=== PATIENT | female | born 1980 | race Caucasian/White ===

== ENCOUNTER 2018-04-14 21:43 | Emergency (ER) | payer BC ==
--- NOTE | 2018-04-14 21:45 | PDOC ---
History of Present Illness - General History Source: Patient Exam Limitations: No Limitations - History of Present Illness Initial Comments: 04/14/18 22:16 The patient is a 37 year old female, with no significant past medical history, who presents to the ED complaining of a frontal head injury after a fall earlier today. She notes that she was out drinking during happy hour with coworkers when she fell forward and hit her head. She reports that she was unable to break her fall due to her inebriated state. She does report some mild dizziness. She denies any seizure like activity. She does reports that she was able to drive herself to the ED. She denies any loss of consciousness, loose teeth or any other kind of injuries. The patient denies chest pain, shortness of breath, headache, nausea and vomit. Allergies: Sulfa Past surgical history: None reported Social History: No alcohol, tobacco or drug use reported <Oscar Oliveros - Last Filed: 04/14/18 22:36> <Niranjan Ballard - Last Filed: 04/15/18 03:07> - General Chief Complaint: Injury Stated Complaint: FELL Time Seen by Provider: 04/14/18 21:45 Past History <Oscar Oliveros - Last Filed: 04/14/18 22:36> <Niranjan Ballard - Last Filed: 04/15/18 03:07> - Past Medical History Allergies/Adverse Reactions: Allergies Allergy/AdvReac Type Severity Reaction Status Date / Time Sulfa (Sulfonamide Allergy Intermediate Verified 04/14/18 21:44 Antibiotics) Home Medications: Ambulatory Orders NK [No Known Home Medication] 04/14/18 Review of Systems - Review of Systems Able to Perform ROS?: Yes Comments:: 04/14/18 22:16 GENERAL/CONSTITUTIONAL: No fever or chills. No weakness. HEAD, EYES, EARS, NOSE AND THROAT: (+) Frontal head injury, above left eyebrow. No change in vision. No ear pain or discharge. No sore throat. GASTROINTESTINAL: No nausea, vomiting, diarrhea or constipation. GENITOURINARY: No dysuria, frequency, or change in urination. CARDIOVASCULAR: No chest pain or shortness of breath. RESPIRATORY: No cough, wheezing, or hemoptysis. MUSCULOSKELETAL: No joint or muscle swelling or pain. No neck or back pain. SKIN: No rash NEUROLOGIC: (+) Dizziness. No headache, loss of consciousness, or change in strength/sensation. ENDOCRINE: No increased thirst. No abnormal weight change. HEMATOLOGIC/LYMPHATIC: No anemia, easy bleeding, or history of blood clots. ALLERGIC/IMMUNOLOGIC: No hives or skin allergy. <Oscar Oliveros - Last Filed: 04/14/18 22:36> *Physical Exam - Vital Signs Last Vital Signs Temp Pulse Resp BP Pulse Ox 97.4 F L 85 16 117/79 100 04/14/18 21:44 04/14/18 21:44 04/14/18 21:44 04/14/18 21:44 04/14/18 21:44 - Physical Exam Comments: 04/14/18 22:28 Constitutional: Awake, alert, oriented. No acute distress. Head: (+) 2 cm horiztonal laceration over her left eyebrow. Eyes: PERRL. EOMI. Conjunctivae are not pale. ENT: Mucous membranes are moist and intact. Posterior pharynx without exudates or erythema. Uvula midline. Neck: Supple. Full ROM. No lymphadenopathy. Cardiovascular: Regular rate. Regular rhythm. S1, S2 regular. Distal pulses are 2+ and symmetric. Pulmonary/Chest: No evidence of respiratory distress. Clear to auscultation bilaterally No wheezing, rales or rhonchi. Abdominal: Soft and non-distended. There is no tenderness. No rebound, guarding or rigidity. No organomegaly. No palpable masses. Good bowel sounds. Back: No CVA tenderness. Musculoskeletal: No edema. No cyanosis. No clubbing. Full range of motion in all extremities. Nocalf tenderness. Radial/pedal pulses are intact and 2+ bilaterally Skin: Skin is warm and dry. No petechiae. No purpura. Neurological: Alert and oriented to person, place, and time. Cranial nerves II -XII are grossly intact. Normal speech. Strength is grossly symmetric. No sensory deficits. Psychiatric: Good eye contact. Normal interaction, affect and behavior. <Oscar Oliveros - Last Filed: 04/14/18 22:36> Moderate Sedation - Procedure Monitoring Vital Signs: Procedure Monitoring Vital Signs Temperature 97.4 F L 04/14/18 21:44 Pulse Rate 85 04/14/18 21:44 Respiratory Rate 16 04/14/18 21:44 Blood Pressure 117/79 04/14/18 21:44 O2 Sat by Pulse Oximetry (%) 100 04/14/18 21:44 <Oscar Oliveros - Last Filed: 04/14/18 22:36> Procedures - Laceration/Wound Repair Left Anterior Medial Head Wound Length: to 2.5 cm Wound Explored: clean, no foreign body present Wound's Depth, Shape: linear Irrigated w/ Saline: Yes Anesthesia: 1% Lidocaine (3 ccs without Epi ) Amount of Anesthetic (ccs): 3 Wound Repaired With: Sutures Suture Size/Type: 6:0, nylon Number of Sutures: 3 <Oscar Oliveros - Last Filed: 04/14/18 22:36> Medical Decision Making - Medical Decision Making 04/15/18 03:05 ic[place] head - t utd lac repaired. ? nasal fx--plastics fu for persistent pain, deformity <Niranjan Ballard - Last Filed: 04/15/18 03:07> *DC/Admit/Observation/Transfer - Attestations Scribe Attestion: 04/14/18 22:16 Documentation prepared by Oscar Oliveros, acting as medical coordinator pesticide use for Niranjan Ballard MD <Oscar Oliveros - Last Filed: 04/14/18 22:36> <Niranjan Ballard - Last Filed: 04/15/18 03:07> Diagnosis at time of Disposition: Laceration - Discharge Dispostion Disposition: HOME Condition at time of disposition: Good - Referrals Referrals: Desire Joe MD [Primary Care Provider] - Call tomorrow - Patient Instructions Printed Discharge Instructions: DI for Concussion, DI for Laceration Repair -- Simple - Post Discharge Activity
[2018-04-14 21:57] VITALS: BP 117/79; PULSE 85; TEMP 97.4; BMI 26.5
== END 2018-04-14 22:35 | disposition home or self-care (01) ==
LOC: FER 21:43
PROC: 0HQ0XZZ Repair Scalp Skin, External Approach (ICD-10-PCS; principal; 2018-04-14)
DX: S01.01XA Laceration without foreign body of scalp, initial encounter (principal); W18.39XA Other fall on same level, initial encounter; Y93.89 Activity, other specified; Y92.89 Other specified places as the place of occurrence of the external cause
CPT/HCPCS: 99281-25

== ENCOUNTER 2020-05-03 12:40 | Emergency (ER) | payer BC ==
[2020-05-03 13:31] VITALS: BP 126/80; PULSE 82; TEMP 98.6; BMI 28.3
[2020-05-03 14:14] LABS: BASO % 1.5 % (0-2.0); EOS % 0.1 % (0-4.5); HEMATOCRIT 38.2 % (32.4-45.2); HEMOGLOBIN 12.2 GM/dl (10.7-15.3); LYMPH % 15.1 % (8-40); MCH 26.3 pg (25.7-33.7); MCHC 31.9 g/dl (32.0-36.0); MEAN CELL VOLUME 82.5 fl (80-96); MEAN PLT VOLUME 8.6 fl (7.5-11.1); MONO % 2.5 % (3.8-10.2); NEUT % 80.8 % (42.8-82.8); PLATELET COUNT 275 K/MM3 (134-434); RBC 4.63 M/mm3 (3.60-5.2); RDW 12.4 % (11.6-15.6); WHITE BLOOD COUNT 7.7 K/mm3 (4.0-10.8)
[2020-05-03 14:20] LABS: ALBUMIN 3.3 g/dl (3.4-5.0); BILIRUBIN,TOTAL 0.8 mg/dl (0.2-1); CALCIUM 8.6 mg/dl (8.5-10); CREATININE 0.9 mg/dl (0.55-1.3)
[2020-05-03 14:31] LABS: EPITHELIAL CELLS FEW /hpf
[2020-05-03] MEDS ORDERED: ACETAMINOPHEN 500 MG TABLET (FP) PO ONE (14:55)
[2020-05-03] MEDS ORDERED: ACETAMINOPHEN 500 MG TABLET (FP) ONE (14:56)
[2020-05-03] MEDS ORDERED: MAG HYDROX/AL HYDROX/SIMETH -MYLANTA- ORAL SUSPENSION PO ONE (15:34)
[2020-05-03] MEDS ORDERED: FAMOTIDINE 20 MG TABLET PO ONE (15:34)
[2020-05-03] MEDS ORDERED: LIDOCAINE VISCOUS 2% ORAL/TOP 15 ML UNIT-DOSE CUP MM ONE (15:34)
[2020-05-03] MEDS ORDERED: MAG HYDROX/AL HYDROX/SIMETH 30 ML UNIT-DOSE CUP ONE (15:44)
[2020-05-03] MEDS ORDERED: LIDOCAINE VISCOUS 2% ORAL/TOP 15 ML UNIT-DOSE CUP ONE (15:44)
[2020-05-03] MEDS ORDERED: FAMOTIDINE 20 MG TABLET ONE (15:44)
== END 2020-05-03 15:53 | disposition home or self-care (01) ==
LOC: FER 12:40
DX: R10.13 Epigastric pain (principal)
CPT/HCPCS: 36415; 80053; 81003; 81015; 81025; 84484; 85025; 93005; 99284-25

== ENCOUNTER 2023-05-16 12:30 | Emergency (ER) | payer BC ==
[2023-05-16] MEDS ORDERED: ONDANSETRON 4 MG/2 ML VIAL IVPUSH ONE (12:45)
[2023-05-16] MEDS ORDERED: SODIUM CHLORIDE 0.9% 500 ML INFUS.BAG IV ONE (12:46)
[2023-05-16 12:57] VITALS: TEMP 99.4; BMI 30.9
[2023-05-16] MEDS ORDERED: ONDANSETRON 4 MG/2 ML VIAL ONE (13:08)
[2023-05-16 13:20] LABS: HEMATOCRIT 39.2 % (32.4-45.2); HEMOGLOBIN 12.9 G/dL (10.7-15.3); MCH 27.2 pg (25.7-33.7); MCHC 32.9 g/dl (32.0-36.0); MEAN CELL VOLUME 82.6 fl (80-96); MEAN PLT VOLUME 8.8 fl (7.5-11.1); PLATELET COUNT 269.6 10^3/uL (134-434); RBC 4.75 10^6/uL (3.60-5.2); RDW 14.5 % (11.6-15.6); WHITE BLOOD COUNT 9.3 10^3/uL (4.0-10.8)
[2023-05-16 13:40] LABS: PLATELET ESTIMATE ADEQUATE
[2023-05-16 13:41] LABS: ALBUMIN 4.3 g/dl (3.4-5.0); BILIRUBIN,TOTAL 0.8 mg/dl (0.2-1); CREATININE 0.8 mg/dl (0.6-1.3); POTASSIUM 3.6 mmol/L (3.5-5.1); TOT PROT 6.7 g/dl (6.4-8.2)
[2023-05-16] MEDS ORDERED: ACETAMINOPHEN 325 MG TABLET (FP) PO ONE (14:34)
[2023-05-16] MEDS ORDERED: ACETAMINOPHEN 325 MG TABLET (FP) ONE (14:35)
[2023-05-16 14:50] VITALS: BP 110/68; PULSE 78; RESP 16
== END 2023-05-16 15:28 | disposition home or self-care (01) ==
LOC: FER 12:30
PROC: 3E033NZ Introduction of Analgesics, Hypnotics, Sedatives into Peripheral Vein, Percutaneous Approach (ICD-10-PCS; principal; 2023-05-16)
DX: R10.13 Epigastric pain (principal); R11.2 Nausea with vomiting, unspecified; K83.8 Other specified diseases of biliary tract
CPT/HCPCS: 36415; 76705-TC; 80053; 81003; 81015; 83690; 84703; 85025; 87086; 99284-25